=== PATIENT | female | born 1965 | race Caucasian/White ===

== ENCOUNTER 2017-09-28 11:00 | Emergency (ER) | payer SELFPAY ==
[2017-09-28 11:00] VITALS: BP 113/76
--- NOTE | 2017-09-28 11:02 | ER Report ---
History and Physical Time Seen By MD: 11:01 HPI/ROS CHIEF COMPLAINT: Right lower dental abscess HISTORY OF PRESENT ILLNESS: Patient is a 52-year-old female here with right lower dental abscess adjacent to right lower molar which is been present for the past several days. Patient denies fevers, chills, facial swelling, dysphagia , headache, blurred vision. She has not attempted treatment for this infection. [place] REVIEW OF SYSTEMS: Constitutional: No fever, no chills. Eyes: No discharge. ENT: No sore throat, + Right lower dental abscess Musculoskeletal: No back pain. Skin: No rashes. Neurological: No headache. Allergies: Coded Allergies: ketorolac (Verified Allergy, Unknown, 09/28/17) meperidine (Verified Allergy, Unknown, 09/28/17) morphine (Verified Allergy, Unknown, 09/28/17) Home Meds Active Scripts Naproxen Sodium (ALEVE) 220 Mg Capsule, 440 MG PO TID for 7 Days, #21 CAPSULE Prov:LAILA BAI DO 09/28/17 Penicillin V Potassium 500 Mg Tab (PENICILLIN V POTASSIUM 500 MG TAB) 500 Mg Tablet, 500 MG PO QID for 7 Days, #28 TAB Prov:LAILA BAI DO 09/28/17 Reported Medications Prazosin Hcl (PRAZOSIN HCL) 1 Mg Capsule, 3 MG PO QHS, CAPSULE 09/28/17 Primidone (PRIMIDONE) 50 Mg Tab, 150 MG PO BID, TAB 09/28/17 Aripiprazole (ABILIFY) 15 Mg Tablet, 15 MG PO QDAY, TAB 09/28/17 Hydroxyzine Hcl (HYDROXYZINE HCL) 50 Mg Tablet, 50 MG PO QDAY 09/28/17 Duloxetine HCl (Duloxetine HCl) 60 Mg Capsule.dr, 100 MG PO BID 09/28/17 Constitutional Vital Sign - Last 24 Hours 09/28/17 11:00 Temp 98.0 Pulse 59 Resp 18 B/P (MAP) 113/76 Pulse Ox 95 O2 Delivery Room Air Physical Exam General Appearance: The patient is alert, has no immediate need for airway protection and no signs of toxicity. Mild distress secondary to pain Eyes: Pupils equal and round no pallor or injection. ENT, Mouth: Mucous membranes are moist. Neurological: No focal neurological deficits Skin: Warm and dry, no rashes. DIFFERENTIAL DIAGNOSIS: After history and physical exam differential diagnosis was considered for dental caries, dental abscess, dental fracture, soft tissue edema Medical Decision Making ED Course/Re-evaluation ED Course Patient is a 52-year-old female here with complaints of right lower molar dental abscess which has been present and worsening over the past several days. An inferior alveolar dental nerve block was performed using bupivacaine with epinephrine approximately 3 mL with significant relief of pain. I lanced the dental abscess using an 18-gauge needle and expressed purulent material from the site. Patient was given scripts for penicillin and naproxen for outpatient treatment. She was advised to follow-up with dentistry if symptoms fail to respond to myocardial therapy. Patient was stable at time of discharge. Procedure Dental nerve block: A dental nerve block was performed using 3 mL of bupivacaine with epinephrine 0.5% formulation infiltrated surrounding the right inferior alveolar nerve for pain relief. Patient tolerated the procedure well and had significant relief of symptoms posttreatment. Decision to Disposition Date: Sep 28, 2017 Decision to Disposition Time: 11:20 Depart Departure Latest Vital Signs Vital Signs Date Time Temp Pulse Resp B/P (MAP) Pulse Ox O2 Delivery O2 Flow Rate FiO2 09/28/17 11:00 98.0 59 18 113/76 95 Room Air Impression: Primary Impression: Dental abscess Condition: Improved Disposition: HOME OR SELF-CARE New Scripts Naproxen Sodium (ALEVE) 220 Mg Capsule 440 MG PO TID for 7 Days, #21 CAPSULE Prov: LAILA BAI DO 09/28/17 Penicillin V Potassium 500 Mg Tab (PENICILLIN V POTASSIUM 500 MG TAB) 500 Mg Tablet 500 MG PO QID for 7 Days, #28 TAB Prov: LAILA BAI DO 09/28/17 Patient Instructions: Dental Abscess (ED) Additional Instructions: Please take one tablet of penicillin 4 times a day for 7 days. You may take 2 tablets of naproxen every 8 hours as needed for pain control. Please return promptly if you develop facial swelling, difficulty swallowing, fevers, increased pain. LAILA BAI DO Sep 28, 2017 11:02
[2017-09-28] MEDS ORDERED: HYDR-4228 PO (11:08)
[2017-09-28] MEDS ORDERED: PRAZ1CAP26 PO (11:08)
[2017-09-28] MEDS ORDERED: ARIP15TA9 PO (11:08)
[2017-09-28] MEDS ORDERED: PRIM50TA PO (11:08)
[2017-09-28] MEDS ORDERED: DULO60CA7 PO (11:08)
[2017-09-28] MEDS ORDERED: PENI-24 PO (11:16)
[2017-09-28] MEDS ORDERED: NAPR220C12 PO (11:16)
== END 2017-09-28 11:22 | disposition home or self-care (01) ==
LOC: ER 11:04
DX: K04.7 Periapical abscess without sinus (principal)
CPT/HCPCS: 99283